=== PATIENT | male | born 1975 | race Hispanic/Latino ===

== ENCOUNTER 2021-02-06 19:20 | Emergency (ER) | payer OTHER ==
[2021-02-06 20:25] LABS: Absolute Lymphocytes (CBC) 1.2 K/uL (0.7-4.9); Basophils % 0.4 % (0-1.3); Lymphocytes % 13.2 % (15.3-44.8); MPV 9.3 fL (7.6-11.3); RBC Red Blood Cell Count 5.09 M/uL (4.33-5.43)
[2021-02-06] MEDS ORDERED: CYCLOBENZAPRINE 10 MG TAB ONE (20:26)
[2021-02-06] MEDS ORDERED: HYDROCODONE/APAP 5/325 MG TAB ONE (20:27)
[2021-02-06 20:31] LABS: Protime INR 0.93
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
[2021-02-06 22:40] VITALS: BP 151/84; TEMP 98.4; O2SAT 99
== END 2021-02-06 22:00 | disposition home or self-care (01) ==
LOC: ER 19:20
DX: S16.1XXA Strain of muscle, fascia and tendon at neck level, initial encounter (principal); S39.012A Strain of muscle, fascia and tendon of lower back, initial encounter; S39.013A Strain of muscle, fascia and tendon of pelvis, initial encounter; V49.40XA Driver injured in collision with unspecified motor vehicles in traffic accident, initial encounter
CPT/HCPCS: 85025; 80048; 36415; 85610; 85730; 70450; 72125; 71260; 74177; 99284; Q9967